=== PATIENT | female | born 1995 | race Two or more races ===

== ENCOUNTER 2017-10-06 08:43 | Day surgery (SDC) | payer BC ==
[2017-10-06] VITALS (8 sets, daily range): BP systolic 99–117; BP diastolic 60–97
[~2017-10-06] VITALS: Ht 165.1 cm; Wt 65.3 kg
[2017-10-06] MEDS ORDERED: LR 1000ml 1,000 ML IVLG SCH (09:36)
[2017-10-06] MEDS ORDERED: FEMYNOR 28 TAB1 EACH PO (09:50)
--- NOTE | 2017-10-06 10:49 | Pre-Procedure Note/Attestation ---
Pre-Procedure Note/Attestation Complete Prior to Procedure Planned Procedure: left Procedure Narrative: Endoscopic examination of the upper GI tract with biopsy. Indications for Procedure Pre-Operative Diagnosis: R/O Esophagitis Attestation I attest that I discussed the nature of the procedure; its benefits; risks and complications; and alternatives (and the risks and benefits of such alternatives ), prior to the procedure, with the patient (or the patient's legal manufacturing sales representative). I attest that, if there was a reasonable possibility of needing a blood transfusion, the patient (or the patient's legal manufacturing sales representative) was given the [facility] standardized written summary, pursuant to the L[place] Blood Safety Act ([place] Health and Safety Code # 1645, as amended). I attest that I re-evaluated the patient just prior to the surgery and that there has been no change in the patient's H&P, except as documented below: ADRIEL,SAID Oct 06, 2017 10:49
--- NOTE | 2017-10-06 10:49 | Short Stay Surgery H&P ---
History of Present Illness History of Present Illness Chief Complaint Heartburn HPI Steph Cifuentes is a 22 year old female who was admitted on for GERD Patient History Allergies: Coded Allergies: No Known Allergies (Unverified , 10/06/17) PAST MEDICAL HISTORY: Past Surgeries: Social History: Medication History Scheduled Norgestimate-Ethinyl Estradiol ([place] 28 Tablet), 1 EACH PO DAILY, (Reported) Review of Systems Cardiovascular: Reports: no symptoms Respiratory: Reports: no symptoms Skeletal: Reports: no symptoms Gastrointestinal: Reports: gastro esophageal reflux disease Genitourinary: Reports: no symptoms Neurologic: Reports: no symptoms Endocrine: Reports: no symptoms Hematologic: Reports: no symptoms Physical Exam Vital Signs Last Vital Signs Date Time Temp Pulse Resp B/P (MAP) Pulse Ox O2 Delivery O2 Flow Rate FiO2 10/06/17 09:35 98.6 87 18 113/73 100 Room Air Labs Laboratory Tests Test 10/06/17 08:50 Urine HCG, Qualitative Negative Skin: normal HENT: normal Heart: normal Lungs: normal Abdomen: normal Extremities: normal Genitourinary: normal Plan Plan of Care Upper Gi endoscopy and biopsy Preop Interventions none. Summary of Findings See the reports Final Diagnosis: Attestation Are the patient's medical conditions optimized for surgery? Attestation Response: yes AMERICA MOREL Oct 06, 2017 10:49
[2017-10-06] MEDS ORDERED: fentaNYL 100 mcg/2 mL IV ONE (11:00)
[2017-10-06] MEDS ORDERED: Propofol 200mg/20ml IV ONE (11:00)
[2017-10-06] MEDS ORDERED: Midazolam 2mg/2ml Inj ONE (11:00)
[2017-10-06] MEDS ORDERED: LR 1000ml ONE (11:00)
--- NOTE | 2017-10-06 11:09 | Endoscopy Procedure Note ---
Endoscopy Procedure Note Procedures Performed: EGD - Completely normal Upper GI endoscopy with minimal amount of bile in stomach. Biopsies were obtained from gastric body, GE junction and esophagus, R/O Bile reflux VS. Esoinophylic esophagitis/ Functional GERD/NERD Specimen: yes Pt Tolerated Procedure Well: Yes Estimated Blood Loss: none Anesthesiologist: Dr. Cohn Anesthesia: moderate sedation Medication Given: see anesthesia record Implant(s) used?: No 50 yrs or older w/o bx or poly: Not Applicable 10yrs. F/U not recommended: Not Applicable Med reason:<3 yrs.: AMERICA MOREL Oct 06, 2017 11:09
--- NOTE | 2017-10-06 11:10 | Discharge Instructions ---
Discharge Instructions Discharge Instructions Follow up with: See the doctor after three weeks in the office. For Congestive Heart Failure Reminder Report to your physician any weight gain of 5 pounds or more in one week. ADRIEL,AMERICA Oct 06, 2017 11:09
--- NOTE | 2017-10-06 11:21 | Anethesia Preoperative Eval ---
Anesthesia Pre-op PMH/ROS General Date of Evaluation: Oct 06, 2017 Time of Evaluation: 10:03 Anesthesiologist: Suki ASA Score: ASA 2 Mallampati Score Class I : Soft palate, uvula, fauces, pillars visible Class II: Soft palate, uvula, fauces visible Class III: Soft palate, base of uvula visible Class IV: Only hard plate visible Mallampati Classification: Class II Surgeon: Olman Diagnosis: Abdominal pain Surgical Procedure: EGD Anesthesia History: none Social History: alcohol use Family History: no anesthesia problems Allergies: Coded Allergies: No Known Allergies (Unverified , 10/06/17) Medications: see eMAR Past Medical History Cardiovascular: Denies: HTN, CAD, SC, valve dz, arrhythmia, other Pulmonary: Denies: asthma, COPD, HARRY, other Gastrointestinal/Genitourinary: Reports: GERD, Denies: CRI, ESRD, other Neurologic/Psychiatric: Denies: dementia, CVA, depression/anxiety, TIA, other Endocrine: Denies: DM, hypothyroidism, steroids, other Hematology/Immune: Denies: anemia, DVT, bleeding disorder, other Musculoskeletal/Integumentary: Denies: OA, RA, DJD, DDD, edema, other PMH Narrative: as above PSxH Narrative: none Anesthesia Pre-op Phys. Exam Physician Exam Last Vital Signs Date Time Temp Pulse Resp B/P (MAP) Pulse Ox O2 Delivery O2 Flow Rate FiO2 10/06/17 09:35 98.6 87 18 113/73 100 Room Air Constitutional: NAD Neurologic: CN 2-12 intact Cardiovascular: RRR Respiratory: CTA Gastrointestinal: S/NT/ND Airway Exam Mallampati Score: Class II MO: full Neck: flexible ROM: full Teeth: missing Dentures: no upper, no lower Anesthesia Pre-op A/P Labs Urine Test Test 10/06/17 08:50 Urine HCG, Qualitative Negative Risk Assessment & Plan Assessment: ASA 2 Plan: MAC Status Change Before Surgery: JERROD Delgadillo M.D. Oct 06, 2017 11:21
--- NOTE | 2017-10-06 11:22 | Immediate Post-Op Evaluation ---
Immediate Post-Op Evalulation Immediate Post-Op Evalulation Procedure: EGD with Bx Date of Evaluation: Oct 06, 2017 Time of Evaluation: 11:21 IV Fluids: 700 Blood Products: none Estimated Blood Loss: min Urinary Output: none Blood Pressure Systolic: 117 Blood Pressure Diastolic: 70 Pulse Rate: 89 Respiratory Rate: 20 O2 Sat by Pulse Oximetry: 99 Temperature (Fahrenheit): 97.6 Pain Score (1-10): 1 Nausea: No Vomiting: No Patient Status: awake, patent, none Hydration Status: adequate JERROD DAS M.D. Oct 06, 2017 11:22
--- NOTE | 2017-10-06 11:24 | 48 Hour Post Anesthesia Eval ---
Post Anesthesia Evaluation Procedure: EGD with Bx Date of Evaluation: Oct 06, 2017 Time of Evaluation: 11:50 Blood Pressure Systolic: 108 0: 72 Pulse Rate: 78 Respiratory Rate: 22 Temperature (Fahrenheit): 97.6 O2 Sat by Pulse Oximetry: 98 Airway: patent Nausea: No Vomiting: No Pain Intensity: 1 Hydration Status: adequate Cardiopulmonary Status: stable Mental Status/LOC: patient returned to baseline Follow-up Care/Observations: n/a Post-Anesthesia Complications: none Follow-up care needed: ready to discharge JERROD DAS M.D. Oct 06, 2017 11:24
[2017-10-06] MEDS ORDERED: fentaNYL 100 mcg/2 mL IV PRN (11:30)
--- NOTE | 2017-10-06 22:15 | Procedure Note ---
DATE OF PROCEDURE: 10/06/2017 SURGEON: Kit Richmond M.D. PROCEDURE: Esophagogastroduodenoscopy with multiple biopsies. PREOPERATIVE DIAGNOSES: History of gastroesophageal reflux, chest pressure, rule out acid reflux versus bile reflux versus eosinophilic esophagitis/nonerosive reflux disease or functional gastroesophageal reflux disease. POSTOPERATIVE DIAGNOSIS: Completely normal upper gastrointestinal endoscopy. Multiple biopsies were taken from the esophagus, gastroesophageal junction, and gastric body. MEDICATION USED: Per Dr. Cohn, anesthesiologist. INSTRUMENT: GIF Olympus upper GI video endoscope. DESCRIPTION OF PROCEDURE: The patient, after arriving in endoscopy unit, was told about risks and benefits of the procedure, which she accepted and signed informed consent. She was then put in the left lateral decubitus position. After adequate IV sedation, the scope was gently passed through the cricopharyngeal area, was lodged into the upper esophagus, and gradually advanced towards the gastroesophageal junction. The entire length of the esophagus looked normal. There was no any evidence of inflammatory process, ulceration, stricture, polyps, exudate, etc. Multiple biopsies from different parts of the esophagus were obtained and subsequently scope was passed through GE junction, which revealed possible some mild inflammatory process at that level of 2-3 mm and it was subsequently biopsied. It looked benign. At this point, the scope was advanced into the stomach. Gastric cavity was distended and it revealed there was minimal amount of bile in the fundus of the stomach, which was suctioned. Underlying mucosa was completely within normal limits. There was no any inflammatory process, ulcers, tumors, etc. One biopsy from gastric body was obtained and subsequently scope was passed through the pylorus. First and second portions of duodenum were found to be completely normal. At this time, the scope was pulled back into the stomach. A retroflexion maneuver was applied. The area of the gastroesophageal junction was examined which again did not reveal any pathology. Finally, the scope was pulled out and procedure was terminated. The patient tolerated the procedure well and left the endoscopy room in good condition. Kit Richmond M.D. DR: NORMA JOB#: [id number] CC:
== END 2017-10-06 12:20 | disposition home or self-care (01) ==
LOC: GAS 08:43
DX: K21.9 Gastro-esophageal reflux disease without esophagitis (principal)
CPT/HCPCS: 43239; 81025; J2250; J2704; J3010; J7120; 94003; 94150